=== PATIENT | male | born 1990 | race Caucasian/White ===

== ENCOUNTER → 2018-04-25 | Outpatient (CLI) | payer OTHER ==
[~2018-04-25] MED LIST: Bactrim Ds Tab1 EACH PO; Bactroban22 GM TOP; CEPH500 PO; IBUP600 PO; OXYACE5T PO
== END | disposition home or self-care (01) ==
LOC: LAB SHORT 15:33 → LAB EV 15:33
DX: L08.9 Local infection of the skin and subcutaneous tissue, unspecified (principal)
CPT/HCPCS: 87070; 87075; 87077; 87186; 87205